=== PATIENT | male | born 1970 | race African-American/Black ===

== ENCOUNTER 2025-01-10 16:36 | Emergency (ER) | payer OTHER ==
[~2025-01-10] VITALS: Ht 175.2 cm; Wt 51.3 kg
[~2025-01-10 16:36] MED LIST: ANAPROX DS550 MG PO; HYDROCODONE BIT1 T11 PO; MOTRIN800 MG PO; PERCOCET 325 MG1 TA2 PO; VICODIN 5/500 505 MG PO; VICODIN ES 7501 TAB PO
[2025-01-10] MEDS ORDERED: NAPROSYN500 MG PO (18:22)
== END 2025-01-10 18:29 | disposition home or self-care (01) ==
LOC: ED 16:36
DX: S80.01XA Contusion of right knee, initial encounter (principal); Z88.0 Allergy status to penicillin; W22.8XXA Striking against or struck by other objects, initial encounter; Y93.89 Activity, other specified; Y92.89 Other specified places as the place of occurrence of the external cause; Y99.8 Other external cause status